=== PATIENT | female | born 1970 | race Caucasian/White ===

== ENCOUNTER 2017-01-24 21:39 | Emergency (ER) | payer OTHER ==
[~2017-01-24] VITALS: Ht 165.1 cm; Wt 66.8 kg
[~2017-01-24 21:39] MED LIST: ENDOCET 5-3251 EACH PO; Motrin PO; PREFERA-OB P1 TABLET PO
[2017-01-24 21:57] VITALS: BP 169/116
[2017-01-25] MEDS ORDERED: KLONOPIN0.5 M1 PO (14:31)
== END 2017-01-24 22:15 | disposition left against medical advice (07) ==
LOC: EME 21:39
DX: R20.0 Anesthesia of skin (principal); Z53.21 Procedure and treatment not carried out due to patient leaving prior to being seen by health care provider

== ENCOUNTER 2017-01-25 10:22 | Emergency (ER) | payer OTHER ==
[~2017-01-25] VITALS: Ht 165.1 cm; Wt 66.0 kg
[2017-01-25 11:51] LABS: BASOPHIL COUNT 0.1 K/uL (0-0.1); EOSINOPHIL (%) 0.1 % (0-5); HEMATOCRIT 41.8 % (36.0-46.0); IMMATURE GRANULOCYTE (%) 0.2 % (0.0-0.7); IMMATURE GRANULOCYTE COUNT 0.2 K/uL; LYMPHOCYTE COUNT 1.5 K/uL (1.0-2.8); MCH 29.9 PG (29.0-34.0); MCHC 33.5 G/DL (30.0-36.0); MCV 89.3 FL (83-99); MONOCYTE (%) 4.9 % (3-12); MONOCYTE COUNT 0.4 K/uL (0-0.8); NEUTROPHIL (%) 76.7 % (45-76); NEUTROPHIL COUNT 6.7 K/uL (1.8-6.4); PLATELET COUNT 198 K/uL (156-360); RBC DIS.WIDTH-CV 12.5 % (11.8-14.6); RBC DIS.WIDTH-SD 40.1 % (39-53); RED BLOOD COUNT 4.68 M/uL (3.80-5.20); WHITE BLOOD COUNT 8.7 K/uL (4.1-10.2)
[2017-01-25 11:59] LABS: CHLORIDE 105 mEq/L (99-109); POTASSIUM 3.8 mEq/L (3.7-5.4); SODIUM 139 mEq/L (136-147)
[2017-01-25 12:01] LABS: GLUCOSE 106 mg/dL (70-99)
[2017-01-25 12:02] LABS: ANION GAP 12 MEQ/L (2-14)
[2017-01-25 12:05] LABS: GFR ESTIMATE (CALCULATED) > 59 mL/min/
[2017-01-25 12:06] LABS: UREA NITROGEN (BUN) 6 mg/dL (9-23)
[2017-01-25 12:12] LABS: TROP-I INTERPRETATION NEGATIVE; TROPONIN-I < 0.01 ng/mL (0.0-0.30)
[2017-01-25] MEDS ORDERED: KLONOPIN0.5 M1 PO (14:31)
[2017-01-25 15:03] VITALS: BP 130/78
== END 2017-01-25 15:05 | disposition home or self-care (01) ==
LOC: EME 10:22
PROVIDERS: Emergency Medicine
DX: R20.2 Paresthesia of skin (principal); G93.5 Compression of brain; F41.1 Generalized anxiety disorder; I10 Essential (primary) hypertension
CPT/HCPCS: 70496; 70498; 80048; 84484; 85025; 93005; 99281; 99285; J1200; J2765